=== PATIENT | male | born 1995 | race Caucasian/White ===

== ENCOUNTER 2017-11-16 22:56 | Observation (INO) | payer SELFPAY ==
[~2017-11-16] VITALS: Ht 175.3 cm; Wt 149.8 kg
[2017-11-16] MEDS ORDERED: hydrALAzine 20 MG/ML, 1ML IV ONE (23:00)
[2017-11-16] MEDS ORDERED: SODIUM CHLORIDE FLUSH 10ML SYR IVF ONE (23:00)
[2017-11-16] MEDS ORDERED: hydrALAzine 20 MG/ML, 1ML ONE (23:18)
[2017-11-16 23:34] LABS: BASOPHILS # (AUTO) 0.01 x10^3/uL (0-0.1); BASOPHILS % (AUTO) 0 % (0-1); EOSINOPHILS # (AUTO) 0.26 x10^3/uL (0-0.4); EOSINOPHILS % (AUTO) 3 % (1-7); LYMPHOCYTES # (AUTO) 3.62 x10^3/uL (1-3.4); LYMPHOCYTES % (AUTO) 35 % (22-44); MD NO; MEAN CORPUSCULAR HEMOGLOBIN 28.5 pg (27.5-34.5); MEAN CORPUSCULAR HGB CONC 33.6 g/dL (33.2-36.2); MEAN CORPUSCULAR VOLUME 84.7 fL (81-97); MEAN PLATELET VOLUME 8.6 fL (7.4-10.4); MONOCYTES # (AUTO) 0.57 x10^3/uL (0.2-0.8); MONOCYTES % (AUTO) 5 % (2-9); NEUTROPHILS # (AUTO) 6.03 x10^3/uL (1.8-6.8); NEUTROPHILS % (AUTO) 58 % (42-75); PLATELET COUNT 277 x10^3/uL (130-400); RED BLOOD COUNT 5.53 x10^6/uL (4.38-5.82); RED CELL DISTRIBUTION WIDTH 13.9 % (9.4-14.8)
[2017-11-16 23:38] LABS: ALBUMIN 4.3 g/dL (3.4-5.0); ANION GAP 8 mmol/L (5-15); CALCIUM 9.4 mg/dL (8.5-10.1); CHLORIDE 105 mmol/L (98-107)
[2017-11-16 23:42] LABS: TROPONIN I 0.054 ng/mL (0.000-0.045)
[2017-11-16] MEDS ORDERED: ASPIRIN 81 MG TABLET CHEW ONE (23:50)
[2017-11-17] MEDS ORDERED: hydrALAzine 20 MG/ML, 1ML IV ONE
[2017-11-17] MEDS ORDERED: ASPIRIN 81 MG TABLET CHEW PO ONE
[2017-11-17] MEDS ORDERED: ENALAPRILAT 1.25 MG/ML, 2ML IVPush PRN (00:30)
[2017-11-17] MEDS ORDERED: LABETALOL 5MG/ML, 20ML IVPush PRN (00:30)
[2017-11-17] MEDS ORDERED: BISACODYL 10 MG SUPP PR PRN (00:30)
[2017-11-17] MEDS ORDERED: ONDANSETRON ODT 4 MG PO PRN (00:30)
[2017-11-17] MEDS ORDERED: DOCUSATE 100 MG CAPSULE PO PRN (00:30)
[2017-11-17] MEDS ORDERED: ONDANSETRON 2MG/ML, 2ML IVPush PRN (00:30)
[2017-11-17] MEDS ORDERED: ACETAMINOPHEN 325 MG TABLET PO PRN (00:30)
[2017-11-17 00:58] VITALS: BP 151/104
[2017-11-17 01:12] VITALS: BP 151/104
[2017-11-17 01:14] LABS: AMPHETAMINE SCREEN, URINE Negative (Negative); BARBITURATE SCREEN, URINE Negative (Negative); BENZODIAZEPINE SCREEN, URINE Negative (Negative); CANNABINOID SCREEN, URINE Negative (Negative); COCAINE SCREEN, URINE Negative (Negative); METHADONE SCREEN, URINE Negative (Negative); OPIATE SCREEN, URINE Negative (Negative)
[2017-11-17 01:30] LABS: HEMOGLOBIN A1C 6.4 % (4.2-6.3)
[2017-11-17 05:05] LABS: TROPONIN I 0.049 ng/mL (0.000-0.045)
[2017-11-17 07:32] VITALS: BP 161/111
[2017-11-17 07:53] VITALS: BP 131/87
[2017-11-17] MEDS ORDERED: METOPROLOL TARTRATE 25 MG TABLET PO SCH (09:00)
[2017-11-17] MEDS ORDERED: SENNA/DOCUSATE TABLET PO SCH (09:00)
[2017-11-17] MEDS ORDERED: LISINOPRIL 20 MG TABLET PO SCH (09:00)
[2017-11-17] MEDS ORDERED: LISINOPRIL 10 MG TABLET PO SCH (09:00)
[2017-11-17 12:11] LABS: TROPONIN I 0.035 ng/mL (0.000-0.045)
[2017-11-17 14:20] VITALS: BP 135/90
== END 2017-11-17 15:13 | disposition left against medical advice (07) ==
LOC: ED 23:31 → 5SO 11-17 00:17 → ED 11-17 00:52
PROVIDERS: ADMIT Internal Medicine; ATTEND Internal Medicine
DX: I16.0 Hypertensive urgency (principal); E66.9 Obesity, unspecified; Z83.3 Family history of diabetes mellitus
CPT/HCPCS: 36415; 71045; 80048; 80307; 82040; 83036; 83880; 84484; 85025; 93005; 93306; 96374; 99285; G0378; J0360